=== PATIENT | male | born 1960 | race Caucasian/White ===

== ENCOUNTER 2019-06-06 20:33 | Inpatient (IN) | payer MEDICAID ==
[~2019-06-06] VITALS: Ht 172.7 cm; Wt 73.9 kg
--- NOTE | 2019-06-06 20:37 | NUR ---
PT [id number] FROM HOME C/P PALPITATIONS X 2 HOURS, NO PRIOR HX. PER RA PATIENT IN SVT'S RATE 180'S, GIVEN ADENOSINE 6MG RIGGER THIRD AND CONVERTED. PT AOX4. NAD NOTED. RESP EVEN AND UNLABORED. PT ON MONITOR IN BED 3. WILL CONTINUE TO MONITOR.
--- NOTE | 2019-06-06 20:38 | NUR ---
TECH AT BEDSIDE FOR EKG
--- NOTE | 2019-06-06 20:46 | NUR ---
PHLEB AT BEDSIDE FOR LAB DRAW
[2019-06-06 20:55] LABS: BASOPHILS % (AUTO) 0.8 % (0.0-2.0); EOSINOPHILS % (AUTO) 2.9 % (0.0-6.0); HEMATOCRIT 46 % (39-51); LYMPHOCYTES # (AUTO) 1.8 /CMM (0.8-4.8); MEAN CORPUSCULAR HGB CONC 35 g/dl (31.0-36.0); MEAN CORPUSCULAR VOLUME 93 fL (80-96); MONOCYTES # (AUTO) 0.6 /CMM (0.1-1.30); MONOCYTES % (AUTO) 10.9 % (2.0-12.0); NEUTROPHILS # (AUTO) 3.2 /CMM (1.8-8.9); NEUTROPHILS % (AUTO) 54.4 % (43.0-81.0); PLATELET COUNT (AUTO) 193 /CMM (150-450); RED BLOOD CELL COUNT(AUTO) 4.92 MIL/uL (4.5-6.0); WHITE BLOOD COUNT (AUTO) 5.8 K/uL (4.3-11.0)
--- NOTE | 2019-06-06 21:02 | NUR ---
DAUGHTER AT BEDSIDE
--- NOTE | 2019-06-06 21:10 | NUR ---
RADIOLOGY AT BEDSIDE FOR XRAY
[2019-06-06 21:11] LABS: CALCIUM, SERUM 8.5 mg/dL (8.5-10.1)
--- NOTE | 2019-06-06 21:20 | NUR ---
GLUC 511. MD AWARE.
[2019-06-06] MEDS ORDERED: ASPIRIN 325 MG TABLET PO ONE (21:30)
[2019-06-06] MEDS ORDERED: INSULIN REGULAR, HUMAN 100 UNIT/ML 10 ML VIAL SQ ONE (21:30)
--- NOTE | 2019-06-06 21:55 | NUR ---
TECH AT BEDSIDE FOR REPEAT EKG
[2019-06-06] MEDS ORDERED: ASPIRIN 325 MG TABLET ONE (22:04)
[2019-06-06] MEDS ORDERED: INSULIN REGULAR, HUMAN 100 UNIT/ML 10 ML VIAL ONE (22:05)
--- NOTE | 2019-06-06 22:34 | NUR ---
PT RESTING COMFORTABLY IN BED WITH DAUGHTER AT BEDSIDE. PT DENIES PAIN AT THIS TIME. WILL CONTINUE TO MONITOR.
[2019-06-06] MEDS ORDERED: ACETAMINOPHEN 325 MG TABLET PO PRN (23:30)
[2019-06-06] MEDS ORDERED: INSULIN REGULAR, HUMAN 100 UNIT/ML 3 ML VIAL SQ PRN (23:30)
[2019-06-06] MEDS ORDERED: MAG HYDROX/AL HYDROX/SIMETH 30 ML UDC PO PRN (23:30)
[2019-06-06] MEDS ORDERED: Z GUARD REMEDY 2 OZ OINT TP PRN (23:30)
[2019-06-06] MEDS ORDERED: DEXTROSE 50%-WATER 50 ML DISP.SYRIN IV PRN (23:30)
[2019-06-06] MEDS ORDERED: ONDANSETRON HCL/PF 4 MG/2 ML VIAL IVP PRN (23:30)
[2019-06-06] MEDS ORDERED: HYDROCODONE/APAP 5/325MG 1 EACH TABLET PO PRN (23:30)
[2019-06-06] MEDS ORDERED: MAGNESIUM HYDROXIDE 30 ML UDC PO PRN (23:30)
--- NOTE | 2019-06-06 23:43 | NUR ---
REPORT GIVEN TO TAMARA CANTRELL FOR LOCO
[2019-06-07] VITALS: BP_SYST 160; BP_DIAS 93; BP_DIAS 94
--- NOTE | 2019-06-07 | NUR ---
WILDLIFE BIOLOGY INTERNSHIPREPRODUCTION PRODUCTION MANAGER NOTES Patient came to unit via gurney, accompanied by daughter. Patient is alert, oriented x 4. Breathing even and unlabored. Not in any distress, on room air. Patient denies chest pain or any discomfort at this time. Tele monitor in place, sinus rhythm 81. No skin issues noted. Belongings checked by FABRICIO Farah. Oriented to call light- placed within reach. Bed in low, locked position. Will continue to monitor accordingly.
[2019-06-07] MEDS: ENOXAPARIN SODIUM 40 MG/0.4 ML DISP.SYRIN SQ SCH ×2 (00:19→23:46)
[2019-06-07 04:00] VITALS: BP 153/93
--- NOTE | 2019-06-07 06:44 | NUR ---
BOBBIN DUMPER CLOSING NOTES Patient resting in bed, alert, oriented x 4. Breathing even and unlabored. Not in any distress, on room air. No complaints at this time. Tele monitor in place- sinus rhythm 75. BSL checked- 294mg/dL. 6 units of insulin given per sliding scale. All needs attended. No acute changes overnight. Safety measures in place. Will endorse LOCO to oncoming RN
[2019-06-07 07:16] LABS: BASOPHILS # (AUTO) 0.1 /CMM (0.0-0.2); BASOPHILS % (AUTO) 0.9 % (0.0-2.0); EOSINOPHILS % (AUTO) 2.6 % (0.0-6.0); HEMATOCRIT 45 % (39-51); HEMOGLOBIN 15.7 g/dL (13.5-17.5); LYMPHOCYTES # (AUTO) 2.4 /CMM (0.8-4.8); LYMPHOCYTES % (AUTO) 34.7 % (20.0-44.0); MEAN CORPUSCULAR HGB CONC 35 g/dl (31.0-36.0); MEAN CORPUSCULAR VOLUME 92 fL (80-96); MONOCYTES # (AUTO) 0.7 /CMM (0.1-1.30); NEUTROPHILS # (AUTO) 3.6 /CMM (1.8-8.9); NEUTROPHILS % (AUTO) 51.8 % (43.0-81.0); PLATELET COUNT (AUTO) 193 /CMM (150-450)
[2019-06-07 07:30] LABS: ALBUMIN 3.3 g/dL (3.4-5.0); BILIRUBIN,TOTAL 0.7 mg/dL (0.2-1.0); CALCIUM, SERUM 8.4 mg/dL (8.5-10.1); CREATININE 0.9 mg/dL (0.6-1.3); MAGNESIUM 1.8 mg/dL (1.8-2.4); PHOSPHORUS 3.8 mg/dL (2.5-4.9); POTASSIUM 3.5 mmol/L (3.5-5.1); TOTAL PROTEIN, SERUM 6.5 g/dL (6.4-8.2)
[2019-06-07] MEDS ORDERED: BLOOD SUGAR DIAGNOSTIC 1 EACH STRIP IN SCH (07:30)
--- NOTE | 2019-06-07 07:30 | NUR ---
SCRAP STRIPPER HAND NOTES PT AWAKE, ALERT AND ORIENTED, SITTING IN BED, DENIES CHEST PAIN OR ANY DISCOMFORT, RESPIRATIONS NORMAL, ON ROOM AIR, DAUGHTER AT BEDSIDE, NEEDS ATTENDED.
[2019-06-07 07:38] LABS: THYROID STIMULATING HORMONE 3.913 uIU/mL (0.358-3.74)
--- NOTE | 2019-06-07 08:00 | NUR ---
CANCER GENETICS ASSISTANT NOTES PT IN BED, AWAKE, ALERT AND ORIENTED, NO COMPLAINT OF CHEST PAIN, NOT IN DISTRESS, REMAINS ON SR ON THE TELE MONITOR, LATEST TROPONIN LEVEL 1.093, DR. THOMPSON INFORMED.
[2019-06-07] MEDS: ASPIRIN 81 MG TAB.CHEW PO SCH (08:21)
[2019-06-07 08:28] VITALS: BP 145/90
[2019-06-07] MEDS ORDERED: DEXTROSE 50%-WATER 50 ML DISP.SYRIN IV PRN (10:30)
--- NOTE | 2019-06-07 10:37 | NUR ---
GARNETT ROOM WORKER NOTES PT SEEN BY DR. THOMPSON, PLAN OF CARE EXPLAINED TO PT AND DAUGHTER AT BEDSIDE, VERBALIZED UNDERSTANDING.
[2019-06-07] MEDS: LISINOPRIL (5MG) 5 MG TABLET PO SCH (11:50)
[2019-06-07] MEDS: CARVEDILOL 3.125 MG TABLET PO SCH ×2 (11:51→21:21)
[2019-06-07 12:00] VITALS: BP 153/87
[2019-06-07] MEDS: INSULIN REGULAR, HUMAN 100 UNIT/ML 3 ML VIAL SQ PRN ×3 (12:59→21:19)
[2019-06-07] MEDS: BLOOD SUGAR DIAGNOSTIC 1 EACH STRIP IN SCH ×3 (13:00→21:17)
--- NOTE | 2019-06-07 14:25 | NUR ---
SENIOR CYTOTECHNOLOGIST NOTES PT IN BED, RESTING, NO COMPLAINT AT THIS TIME, NO SOB, ON O2 AT 2LPM VIA NASAL CANULA, PT SEEN BY DR. LYNN, ORDERS MADE AND CARRIED OUT, LATEST TROPONIN LEVEL AT 0.638, DR. THOMPSON INFORMED, NO FURTHER ORDERS GIVEN, NEXT TROPONIN IN AM.
[2019-06-07 16:00] VITALS: BP 162/87
--- NOTE | 2019-06-07 18:07 | NUR ---
TECHNOLOGY APPLICATIONS CONSULTANT NOTES PT IN BED, AWAKE, ALERT AND ORIENTED, NO COMPLAINT OF CHEST PAIN, RESPIRATIONS NORMAL, CALL LIGHT WITHIN REACH, BLOOD SUGAR CHECKED, INSULIN ADMINISTERED PER SLIDING SCALE ORDERED, TOLERATING CURRENT DIET WELL, ALL NEEDS ATTENDED.
--- NOTE | 2019-06-07 19:37 | NUR ---
FIELD HAND OPENING NOTES RECEIVED PATIENT IN BED AWAKE, ALERT AND ORIENTED X4, VERBALLY RESPONSIVE, ABLE TO MAKE NEEDS KNOWN. BREATHING EVEN AND UNLABORED. NO SOB NOTED. DENIES ANY PAIN OR DISCOMFORT. DENIES ANY CP. PATIENT SR ON TELE MONITOR. IV ON RIGHT AC INTACT AND PATENT. SKIN DRY AND WARM TO TOUCH. AFEBRILE. ALL OTHER NEEDS ATTENDED TO. SAFETY MEASURES IN PLACE. CALL LIGHT WITHIN REACH. WILL CONTINUE TO MONITOR.
[2019-06-07 19:56] VITALS: BP 154/80
[2019-06-07] MEDS: ATORVASTATIN 40 MG TABLET PO SCH (21:21)
[2019-06-08] VITALS: BP 153/88
[2019-06-08 04:03] VITALS: BP 155/85
[2019-06-08] MEDS: BLOOD SUGAR DIAGNOSTIC 1 EACH STRIP IN SCH ×4 (06:31→21:14)
[2019-06-08] MEDS: INSULIN REGULAR, HUMAN 100 UNIT/ML 3 ML VIAL SQ PRN ×3 (06:32→21:16)
--- NOTE | 2019-06-08 06:53 | NUR ---
LOADING MACHINE OPERATOR HELPER CLOSING NOTES PATIENT RESTING IN BED. NOT IN ANY DISTRESS. NO ACUTE CHANGED THROUGHOUT SHIFT. BREATHING EVEN AND UNLABORED. NO SOB NOTED. DENIES ANY PAIN OR DISCOMFORT. DENIES ANY CP. PATIENT SR ON TELE MONITOR. IV ON RIGHT AC INTACT AND PATENT. ALL OTHER NEEDS ATTENDED TO. SAFETY MEASURES IN PLACE. CALL LIGHT WITHIN REACH. WILL ENDORSE TO ONCOMING NURSE FOR LOCO. .
[2019-06-08 06:57] LABS: CALCIUM, SERUM 8.6 mg/dL (8.5-10.1); CREATININE 0.9 mg/dL (0.6-1.3); POTASSIUM 3.7 mmol/L (3.5-5.1)
--- NOTE | 2019-06-08 07:33 | NUR ---
MS RN OPENING NOTES RECEIVED PATIENT IN BED, ALERT AND AWAKE ORIENTED X4. DENIES ANY C/O PAIN NOR DISCOMFORT AT THIS TIME. NO SOB. ON TELE MONITORING WITH SR: 65. RT AC G#18 INTACT AND PATENT WITHOUT S/S OF COMPLICATIONS. SKIN WARM AND DRY TO TOUCH. CALL LIGHT WITHIN REACH. BED IN LOWEST POSITION. BED SIDERAILS UP X2.
--- NOTE | 2019-06-08 08:00 | NUR ---
MS RN NOTES SPOKE TO CINDI FROM RADIOLOGY REGARDING ETA OF CT [facility], PER CINDI ICU NURSE HAS TO JOIN AND WILL CALL BACK ONCE ICU NURSE IS AVAILABLE.
[2019-06-08 08:34] VITALS: BP 145/69
[2019-06-08] MEDS: ASPIRIN 81 MG TAB.CHEW PO SCH (09:00)
[2019-06-08] MEDS: CARVEDILOL 3.125 MG TABLET PO SCH (09:00)
[2019-06-08] MEDS: LISINOPRIL (5MG) 5 MG TABLET PO SCH (09:00)
--- NOTE | 2019-06-08 09:30 | NUR ---
MS RN NOTE SABRINA PUENTE IN RADIOLOGY CONTINUE TO HOLD BP MEDS PENDING CT [facility] OF [facility] HEART. INFORMED OF ELEVATED BP, SABRINA PUENTE CONTINUE TO HOLD MEDS THEY MAY INTERFERE WITH CT ANG[facility] RESULTS
--- NOTE | 2019-06-08 09:41 | NUR ---
MS RN NOTES HELD ALL 9AM MEDS D/T AWAITING FOR CT [facility] OF HE[facility]. PATIENT REMAINS NPO AT THIS TIME. BS 212MG/DL. NO S/S OF HYPO/HYPERGLYCEMIA. AWAITING FOR CALL BACK FROM RADIOLOGY.
--- NOTE | 2019-06-08 10:08 | NUR ---
MS RN NOTES SPOKE TO CINDI FROM RADIOLOGY. [facility] WILL ACCOMPANY PATIENT FOR CT [facility] THIS AFTERNOON. WILL CONTINUE TO REMAIN NPO AND HOLD BP MEDS AT THIS TIME. Addendum: 06/08/19 at 1013 by DIANDRA LEDESMA RN V/S 163/85, HR 63, R20, T 98.0 O2 SAT 100% RA.
--- NOTE | 2019-06-08 12:14 | NUR ---
MS RN NOTES BS 173MG/DL, INSULIN HELD D/T PATIENT NPO, STILL AWAITING FOR CT [facility]. REMAINS STABLE AT THIS TIME.
--- NOTE | 2019-06-08 14:32 | NUR ---
MS RN NOTE PER CINDI IN RADIOLOGY, OKAY TO PROVIDE PT WITH A MEAL AT THIS TIME. 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 WILL INFORM PT AND ORDER FOOD FOR HIM.
[2019-06-08 16:02] VITALS: BP 164/95
--- NOTE | 2019-06-08 17:02 | NUR ---
MS RN NOTE PER RADIOLOGY PT WILL BE PICKED UP FOR CT [facility] OF THE HEART SHORTLY.
[2019-06-08] MEDS ORDERED: NITROGLYCERIN 0.4 MG/TAB BOTTLE ONE (17:30)
--- NOTE | 2019-06-08 17:31 | NUR ---
MS RN NOTE PT OFF UNIT FOR CT [facility]. CONSENT SIGNED AND PLACED IN CHART, RIGHT AC #18G IS PATENT, CLEAN, DRY AND INTACT, CHECKLIST COMPLETED.
[2019-06-08] MEDS ORDERED: IOHEXOL-350 100 ML VIAL IV ONE (17:35)
--- NOTE | 2019-06-08 18:22 | NUR ---
MS RN NOTE PT BACK ON UNIT FROM CT [facility].
--- NOTE | 2019-06-08 18:41 | NUR ---
MS RN CLOSING NOTES PATIENT IN BED, ALERT AND AWAKE ORIENTED X4. EATING DINNER WITH FAMILY AT BEDSIDE. NO SOB. DENIES ANY C/O PAIN NOR DISCOMFORT AT THIS TIME. RT AC G#18 INTACT AND PATENT NO S/S OF COMPLICATIONS. SKIN WARM AND DRY TO TOUCH. CALL LIGHT WITHIN REACH. BED IN LOWEST POSITION. BED SIDERAILS UP X2. IN NO APPARENT DISTRESS. CT [facility] RESULT PENDING.
[2019-06-08 20:11] VITALS: BP 145/91
[2019-06-08] MEDS: METOPROLOL TARTRATE 50 MG TABLET PO SCH (20:19)
--- NOTE | 2019-06-08 20:59 | NUR ---
RN MS OPENING NOTES RECEIVED PATIENT IN BED AWAKE, ALERT AND ORIENTED X4, VERBALLY RESPONSIVE, ABLE TO MAKE NEEDS KNOWN. FAMILY AT BEDSIDE. BREATHING EVEN AND UNLABORED. NO SOB NOTED. DENIES ANY PAIN OR DISCOMFORT. DENIES ANY CP. IV ON RIGHT AC INTACT AND PATENT. SKIN DRY AND WARM TO TOUCH. AFEBRILE. ALL OTHER NEEDS ATTENDED TO. SAFETY MEASURES IN PLACE. CALL LIGHT WITHIN REACH. WILL CONTINUE TO MONITOR.
[2019-06-08] MEDS: ATORVASTATIN 40 MG TABLET PO SCH (21:15)
[2019-06-08] MEDS ORDERED: INSULIN GLARGINE, 100 UNIT/ML CARTRIDGE SQ SCH (22:00)
[2019-06-08] MEDS: ENOXAPARIN SODIUM 40 MG/0.4 ML DISP.SYRIN SQ SCH (23:34)
[2019-06-09] MEDS: BLOOD SUGAR DIAGNOSTIC 1 EACH STRIP IN SCH ×2 (06:36→13:32)
[2019-06-09] MEDS: INSULIN REGULAR, HUMAN 100 UNIT/ML 3 ML VIAL SQ PRN ×2 (06:38→13:35)
--- NOTE | 2019-06-09 06:46 | NUR ---
RN MS CLOSING NOTES PATIENT RESTING IN BED. NOT IN ANY DISTRESS. NO ACUTE CHANGES THROUGHOUT SHIFT. BREATHING EVEN AND UNLABORED. NO SOB NOTED. DENIES ANY PAIN OR DISCOMFORT. DENIES ANY CP. IV ON RIGHT AC INTACT AND PATENT. ALL OTHER NEEDS ATTENDED TO. SAFETY MEASURES IN PLACE. CALL LIGHT WITHIN REACH. WILL ENDORSE TO ONCOMING NURSE FOR LOCO. .
--- NOTE | 2019-06-09 07:47 | NUR ---
RN MS NOTES RELAYED CTA HEART RESULTS TO TAMARA HASSAN.
[2019-06-09 08:00] VITALS: BP 137/85
--- NOTE | 2019-06-09 08:00 | NUR ---
ms rn received on bed, awake,alert,oriented x4,not in any form of distress, respirations even and unlabored,no sob noted, lungs are clear,abdomen soft,positive bowel sounds,denies pain at this time.
--- NOTE | 2019-06-09 09:00 | NUR ---
ms rn was seen by dr. sinclair, showed him result of cta, aware of the result,all needs attended.
[2019-06-09] MEDS ORDERED: CLOPIDOGREL BISULFATE 75 MG TABLET PO SCH (09:30)
[2019-06-09] MEDS: ASPIRIN 81 MG TAB.CHEW PO SCH (09:59)
[2019-06-09] MEDS: LISINOPRIL (5MG) 5 MG TABLET PO SCH (10:00)
[2019-06-09] MEDS: METOPROLOL TARTRATE 50 MG TABLET PO SCH (10:00)
[2019-06-09 15:28] VITALS: BP 128/71
--- NOTE | 2019-06-09 17:00 | NUR ---
ms rn have d/c orders, educated on how to give insulin by himself
--- NOTE | 2019-06-09 17:05 | NUR ---
MS RN WENT HOME ACCOMPANIED BY DAUGHTER,ALL NEEDS ATTENDED.
== END 2019-06-09 18:30 | disposition home health service (06) | DRG 201 ==
LOC: ER 20:38 → TELE 23:18 → MED 06-08 09:26
PROVIDERS: ADMIT Nurse Practitioner Acute Care; ATTEND Nurse Practitioner Acute Care
DX: I47.1 Supraventricular tachycardia (principal); I21.A1 Myocardial infarction type 2; A08.4 Viral intestinal infection, unspecified; E11.65 Type 2 diabetes mellitus with hyperglycemia; I10 Essential (primary) hypertension
CPT/HCPCS: 36415; 71045-TC; 75574; 80048-TC; 80053-TC; 80061-TC; 82962-TC; 83735-TC; 84100-TC; 84443-TC; 84484-TC; 85025-TC; 87081-TC; 93307-TC; G0378; J1650; J1815; Q9967